=== PATIENT | female | born 1985 | race Two or more races ===

== ENCOUNTER 2022-01-30 19:02 | Observation (INO) | payer BC ==
[~2022-01-30 19:02] MED LIST: PREN-96 PO
== END 2022-01-30 20:42 | disposition home or self-care (01) ==
LOC: LDRP 19:02
PROVIDERS: ADMIT Obstetrics & Gynecology; ATTEND Obstetrics & Gynecology
DX: O36.63X0 Maternal care for excessive fetal growth, third trimester, not applicable or unspecified (principal); O62.9 Abnormality of forces of labor, unspecified; O99.891 Other specified diseases and conditions complicating pregnancy; M54.9 Dorsalgia, unspecified; Z3A.35 35 weeks gestation of pregnancy
CPT/HCPCS: 59025; 76818; 81002; G0378

== ENCOUNTER 2022-02-06 19:01 | Observation (INO) | payer BC ==
[~2022-02-06] VITALS: Ht 167.6 cm; Wt 99.8 kg
== END 2022-02-06 20:45 | disposition home or self-care (01) ==
LOC: LDRP 19:01
PROVIDERS: ADMIT Obstetrics & Gynecology; ATTEND Obstetrics & Gynecology
DX: O36.63X0 Maternal care for excessive fetal growth, third trimester, not applicable or unspecified (principal); Z3A.36 36 weeks gestation of pregnancy
CPT/HCPCS: 59025; 76818; 81002; G0378

== ENCOUNTER 2022-02-13 19:00 | Observation (INO) | payer BC ==
[~2022-02-13] VITALS: Ht 167.6 cm; Wt 101.2 kg
[2022-03-02] MEDS ORDERED: IBUP400T22 PO (08:15)
== END 2022-02-13 20:17 | disposition home or self-care (01) ==
LOC: LDRP 19:00 → UNDOADMOB 19:00 → LDRP 19:04 → UNDODISOB 20:17
PROVIDERS: ADMIT Obstetrics & Gynecology; ATTEND Obstetrics & Gynecology
DX: O36.63X0 Maternal care for excessive fetal growth, third trimester, not applicable or unspecified (principal); O62.9 Abnormality of forces of labor, unspecified; Z3A.37 37 weeks gestation of pregnancy; Z91.040 Latex allergy status
CPT/HCPCS: 59025; 76818; 81002; 94760; G0378

== ENCOUNTER 2022-02-21 19:12 | Observation (INO) | payer BC ==
[2022-03-02] MEDS ORDERED: IBUP400T22 PO (08:15)
== END 2022-02-21 21:20 | disposition home or self-care (01) ==
LOC: LDRP 19:12
PROVIDERS: ADMIT Obstetrics & Gynecology; ATTEND Obstetrics & Gynecology
DX: O36.63X0 Maternal care for excessive fetal growth, third trimester, not applicable or unspecified (principal); O09.523 Supervision of elderly multigravida, third trimester; Z3A.38 38 weeks gestation of pregnancy
CPT/HCPCS: 59025; 76818; 81002; G0378

== ENCOUNTER 2022-02-27 10:52 | Observation (INO) | payer BC ==
[2022-03-02] MEDS ORDERED: IBUP400T22 PO (08:15)
== END 2022-02-27 14:38 | disposition home or self-care (01) ==
LOC: UNDOADMOB 10:52 → LDRP 10:52 → UNDODISOB 14:38
PROVIDERS: ADMIT Obstetrics & Gynecology; ATTEND Obstetrics & Gynecology
DX: O36.63X0 Maternal care for excessive fetal growth, third trimester, not applicable or unspecified (principal); O62.9 Abnormality of forces of labor, unspecified; O26.893 Other specified pregnancy related conditions, third trimester; N89.8 Other specified noninflammatory disorders of vagina; R10.2 Pelvic and perineal pain; Z3A.39 39 weeks gestation of pregnancy
CPT/HCPCS: 59025; 76818; 81002; 94760; G0378